=== PATIENT | female | born 1945 | race Two or more races ===

== ENCOUNTER 2023-05-17 12:22 | Inpatient (IN) | payer BC ==
[~2023-05-17] VITALS: Ht 165.1 cm; Wt 71.0 kg
[~2023-05-17 12:22] MED LIST: ATOR10TA52 PO; CEPH500C PO; GLYB5TAB9 GT; HYDR-4902 PO; NALO4SPR2
[2023-05-17 14:38] LABS: Urine Bacteria FEW /hpf (None Seen); Urine Blood Negative /uL (Negative); Urine Clarity HAZY (Clear); Urine Color Colorless (Yellow); Urine Protein, UAD 1+ (Negative); Urine Urobilinogen Normal (Negative); Urine WBC 238 /hpf (0 - 5); Urine WBC Clumps PRESENT /hpf (None Seen)
[2023-05-17 15:06] LABS: Basophils # (auto) 0.1 10 ^3/uL (0-0.2); Basophils % (auto) 0.6 % (0.0-2.0); Eosinophils # (auto) 0.8 10 ^3/uL (0-0.8); Eosinophils % (auto) 5.5 % (0.0-7.0); Hematocrit 27.1 % (36.0-46.0); Hemoglobin 8.8 g/dL (12.2-16.2); Lymphocytes # (auto) 2.4 10 ^3/uL (0.4-5.4); Lymphocytes % (auto) 17.2 % (10.0-50.0); Mean Corpuscular Hgb Conc. 32.6 g/dL (32.0-36.0); Monocytes # (auto) 1.1 10 ^3/uL (0-1.3); Monocytes % (auto) 7.8 % (0.0-12.0); Neutrophils # (auto) 9.5 10 ^3/uL (1.6-8.6); Neutrophils % (auto) 68.9 % (37.0-80.0); Red Blood Cells 2.95 10^6/uL (4.0-5.20); Red Cell Distribution Width 13.7 % (11.8-14.3); White Blood Cell 13.8 10^3/uL (4.4-10.8)
[2023-05-17 15:12] LABS: Alanine Aminotransferase 22 U/L (7-40); Albumin 4.1 g/dL (3.2-4.8); Alkaline Phosphatase 158 U/L (46-116); Anion Gap 6 (5-15); Aspartate Aminotransferase 20 U/L (13-40); BUN/Creatinine Ratio 45.8 (10.0-20.0); Bilirubin, Total 0.3 mg/dL (0.2-1.0); Calcium 9.4 mg/dL (8.5-10.1); Carbon Dioxide 28 mmol/L (20-30); Chloride 103 mmol/L (98-107); Glucose 179 mg/dL (74-106); Potassium 5.3 mmol/L (3.5-5.1); Sodium 137 mmol/L (136-145); Total Protein 6.6 g/dL (5.7-8.2)
[2023-05-17 15:24] LABS: Blood Urea Nitrogen 93 mg/dL (9-23)
[2023-05-17] MEDS ORDERED: ACETAMINOPHEN/CODEINE#3 (300/30mg) TAB PO ONE (15:30)
[2023-05-17] MEDS ORDERED: FUROSEMIDE 40 MG/4 ML VIAL IV ONE (16:00)
[2023-05-17] MEDS ORDERED: CEFTRIAXONE SODIUM 2 GM in D5W 5% 100 ML IV ONE (16:00)
[2023-05-17] MEDS ORDERED: MORPHINE SULFATE INJ 2 MG/ml SYRG IV PRN ×2 (16:30)
[2023-05-17] MEDS ORDERED: ONDANSETRON HCL 4 MG/2 ML VIAL IV PRN (16:30)
[2023-05-17] MEDS ORDERED: NITROGLYCERIN 0.4 MG SL TAB SL PRN (16:30)
[2023-05-17] MEDS ORDERED: DOCUSATE SOD 100 MG CAP PO PRN (16:30)
[2023-05-17] MEDS ORDERED: ACETAMINOPHEN 325 MG TAB PO PRN (16:30)
[2023-05-17 20:24] VITALS: PULSE 64; RESP 18; O2SAT 100
[2023-05-17] MEDS: SODIUM ZIRCONIUM CYCL 10 GM PAK PO SCH (21:02)
[2023-05-17] MEDS: hydrALAZINE HCL 20 MG/ML VL IV PRN (21:17)
[2023-05-17 21:24] LABS: Protein, Urine 54.3 mg/dL (0.0-11.9)
[2023-05-17 21:27] LABS: Creatinine, Urine 22.88 mg/dL (30.0-125.0)
[2023-05-17 22:45] VITALS: BP 162/68; PULSE 73; RESP 18; TEMP 97.6; O2SAT 100
[2023-05-17] MEDS: HYDROcodone-ACET 5/325MG TAB PO PRN (23:20)
[2023-05-18 00:25] VITALS: BP 162/68; PULSE 73; RESP 18; O2SAT 100
[2023-05-18 05:00] VITALS: BP 112/55; PULSE 64; RESP 18; TEMP 97.8; O2SAT 98
[2023-05-18 06:50] LABS: Basophils # (auto) 0.1 10 ^3/uL (0-0.2); Eosinophils # (auto) 0.7 10 ^3/uL (0-0.8); Monocytes # (auto) 1.1 10 ^3/uL (0-1.3); White Blood Cell 11.6 10^3/uL (4.4-10.8)
[2023-05-18 06:51] LABS: Basophils % (auto) 0.6 % (0.0-2.0); Eosinophils % (auto) 5.8 % (0.0-7.0); Hematocrit 24.8 % (36.0-46.0); Hemoglobin 8.3 g/dL (12.2-16.2); Lymphocytes # (auto) 2.2 10 ^3/uL (0.4-5.4); Lymphocytes % (auto) 19.2 % (10.0-50.0); Mean Corpuscular Hemoglobin 30.6 pg (28.0-32.0); Mean Corpuscular Hgb Conc. 33.6 g/dL (32.0-36.0); Mean Corpuscular Volume 91.1 fL (80.0-100.0); Monocytes % (auto) 9.8 % (0.0-12.0); Neutrophils # (auto) 7.5 10 ^3/uL (1.6-8.6); Neutrophils % (auto) 64.6 % (37.0-80.0); Red Blood Cells 2.73 10^6/uL (4.0-5.20); Red Cell Distribution Width 13.8 % (11.8-14.3)
[2023-05-18 07:16] LABS: Alanine Aminotransferase 18 U/L (7-40); Albumin 3.7 g/dL (3.2-4.8); Alkaline Phosphatase 127 U/L (46-116); Anion Gap 5 (5-15); Aspartate Aminotransferase 13 U/L (13-40); BUN/Creatinine Ratio 37.5 (10.0-20.0); Bilirubin, Total 0.3 mg/dL (0.2-1.0); Carbon Dioxide 28 mmol/L (20-30); Chloride 104 mmol/L (98-107); Glucose 167 mg/dL (74-106); Phosphorus 5.1 mg/dL (2.4-5.1); Potassium 4.6 mmol/L (3.5-5.1); Sodium 137 mmol/L (136-145); Total Protein 6.4 g/dL (5.7-8.2)
[2023-05-18 07:17] LABS: Blood Urea Nitrogen 78 mg/dL (9-23)
[2023-05-18 07:19] LABS: % Iron Saturation 18.4 % (15-50)
[2023-05-18 08:00] VITALS: PULSE 18; PULSE 66; RESP 18; O2SAT 97
[2023-05-18] MEDS: SODIUM ZIRCONIUM CYCL 10 GM PAK PO SCH ×2 (09:26→22:04)
[2023-05-18] MEDS: cefTRIAXone 1GM/50ML D5W 50 ML IV SCH (09:26)
[2023-05-18] MEDS: BUMETANIDE 2.5mg/10ml (0.25 mg/ml) INJ IV SCH (09:30)
[2023-05-18] MEDS: HYDROcodone-ACET 5/325MG TAB PO PRN ×2 (09:31→22:03)
[2023-05-18] MEDS: BENAZEPRIL HCL 10 MG TAB PO SCH (09:31)
[2023-05-18] MEDS ORDERED: FUROSEMIDE 40 MG/4 ML VIAL IV SCH (10:00)
[2023-05-18] MEDS ORDERED: EPOETIN ALFA-EPBX 4,000 UNIT/ML VIAL SC ONE (13:45)
[2023-05-18] MEDS: SODIUM FERR GLUC 62.5MG/5ML 125 MG in SODIUM CHL 0.9% 100 ML IV SCH (14:37)
[2023-05-18 17:00] VITALS: BP 166/67; PULSE 71; RESP 18; TEMP 97.9; O2SAT 100
[2023-05-18] MEDS ORDERED: FERROUS SULFATE 325mg EC TAB PO SCH (18:00)
[2023-05-18 20:00] VITALS: BP 182/65; PULSE 18; PULSE 75; RESP 18; TEMP 36.6; O2SAT 97
[2023-05-18 22:00] VITALS: BP 181/65; PULSE 71; RESP 22; TEMP 98.6; O2SAT 97
[2023-05-19] MEDS: HYDROcodone-ACET 5/325MG TAB PO PRN ×2 (04:32→11:45)
[2023-05-19 05:00] VITALS: BP 172/62; PULSE 73; RESP 20; TEMP 99.3; O2SAT 94
[2023-05-19] MEDS: hydrALAZINE HCL 20 MG/ML VL IV PRN (07:51)
[2023-05-19 08:00] VITALS: BP 183/61; PULSE 71; PULSE 73; RESP 18; TEMP 98.9; O2SAT 96
[2023-05-19] MEDS: SODIUM ZIRCONIUM CYCL 10 GM PAK PO SCH (08:00)
[2023-05-19 08:33] LABS: Anion Gap 10 (5-15); Carbon Dioxide 25 mmol/L (20-30); Chloride 101 mmol/L (98-107); Potassium 3.8 mmol/L (3.5-5.1); Sodium 136 mmol/L (136-145)
[2023-05-19 08:39] LABS: Blood Urea Nitrogen 69 mg/dL (9-23); Glucose 196 mg/dL (74-106)
[2023-05-19] MEDS: cefTRIAXone 1GM/50ML D5W 50 ML IV SCH (09:17)
[2023-05-19] MEDS: BENAZEPRIL HCL 10 MG TAB PO SCH (09:18)
[2023-05-19] MEDS: BUMETANIDE 2.5mg/10ml (0.25 mg/ml) INJ IV SCH (09:18)
[2023-05-19 12:00] VITALS: BP 129/65; PULSE 82; RESP 16; TEMP 98.1; O2SAT 94
[2023-05-19] MEDS: SODIUM FERR GLUC 62.5MG/5ML 125 MG in SODIUM CHL 0.9% 100 ML IV SCH (13:56)
[2023-05-19] MEDS ORDERED: NALO4SPR2 (15:25)
[2023-05-19] MEDS ORDERED: HYDR-4902 PO (15:25)
[2023-05-19 16:00] VITALS: BP 135/74; PULSE 76; RESP 17; TEMP 98; O2SAT 94
== END 2023-05-19 18:00 | disposition home or self-care (01) | DRG 683 ==
LOC: ER 12:22 → TELE 16:28 → TELE-CENTR 22:25
PROVIDERS: ADMIT Internal Medicine; ATTEND Internal Medicine
DX: N17.9 Acute kidney failure, unspecified (principal); I12.0 Hypertensive chronic kidney disease with stage 5 chronic kidney disease or end stage renal disease; N39.0 Urinary tract infection, site not specified; D50.9 Iron deficiency anemia, unspecified; E11.22 Type 2 diabetes mellitus with diabetic chronic kidney disease; E78.5 Hyperlipidemia, unspecified; M79.604 Pain in right leg; M79.605 Pain in left leg; R20.0 Anesthesia of skin; E87.5 Hyperkalemia; Z82.49 Family history of ischemic heart disease and other diseases of the circulatory system; Z83.3 Family history of diabetes mellitus; Z91.041 Radiographic dye allergy status; N18.5 Chronic kidney disease, stage 5
CPT/HCPCS: 36415; 80048; 80053; 81001; 82570; 82728; 82962; 83540; 83550; 83970; 84100; 84156; 85025; 93005; G0378; J0696; J2405; J7060

== ENCOUNTER 2023-05-27 03:41 | Emergency (ER) | payer BC ==
[~2023-05-27] VITALS: Ht 162.6 cm; Wt 59.1 kg
[~2023-05-27 03:41] MED LIST changes: -CEPH500C PO
[2023-05-27] MEDS ORDERED: ONDANSETRON ODT 4 MG TAB PO ONE (04:00)
[2023-05-27] MEDS ORDERED: MORPHINE SULFATE 4 MG/ML SYR/VIAL IM ONE (04:00)
[2023-05-27] MEDS ORDERED: MORPHINE SULFATE 4 MG/ML SYR/VIAL IV ONE (04:00)
[2023-05-27 04:39] VITALS: BP 179/77
[2023-05-27 04:54] VITALS: PULSE 79; RESP 17; O2SAT 98
== END 2023-05-27 07:22 | disposition home or self-care (01) ==
LOC: ER 03:41 → EDBD 03:41 → ER 07:21
DX: M54.40 Lumbago with sciatica, unspecified side (principal); I12.9 Hypertensive chronic kidney disease with stage 1 through stage 4 chronic kidney disease, or unspecified chronic kidney disease; E11.22 Type 2 diabetes mellitus with diabetic chronic kidney disease; N18.9 Chronic kidney disease, unspecified; E78.5 Hyperlipidemia, unspecified; Z79.899 Other long term (current) drug therapy; Z91.041 Radiographic dye allergy status
CPT/HCPCS: 93005; 96374; 99285; J2270; Q0162

== ENCOUNTER 2023-05-31 04:38 | Inpatient (IN) | payer BC ==
[~2023-05-31] VITALS: Ht 165.1 cm; Wt 76.3 kg
[2023-05-31 05:15] VITALS: PULSE 82; RESP 13; O2SAT 95
[2023-05-31 07:11] LABS: Basophils # (auto) 0.1 10 ^3/uL (0-0.2); Eosinophils # (auto) 0.2 10 ^3/uL (0-0.8); Eosinophils % (auto) 2.3 % (0.0-7.0); Hematocrit 26.6 % (36.0-46.0); Lymphocytes % (auto) 21.2 % (10.0-50.0); Mean Corpuscular Hemoglobin 30.9 pg (28.0-32.0); Mean Corpuscular Hgb Conc. 33.7 g/dL (32.0-36.0); Mean Corpuscular Volume 91.6 fL (80.0-100.0); Monocytes # (auto) 0.8 10 ^3/uL (0-1.3); Monocytes % (auto) 8.4 % (0.0-12.0); Neutrophils # (auto) 6.2 10 ^3/uL (1.6-8.6); Neutrophils % (auto) 67.1 % (37.0-80.0); Red Blood Cells 2.91 10^6/uL (4.0-5.20); Red Cell Distribution Width 13.5 % (11.8-14.3); White Blood Cell 9.2 10^3/uL (4.4-10.8)
[2023-05-31 07:22] LABS: Alanine Aminotransferase 25 U/L (7-40); Albumin 3.9 g/dL (3.2-4.8); Alkaline Phosphatase 112 U/L (46-116); Anion Gap 10 (5-15); Aspartate Aminotransferase 23 U/L (13-40); BUN/Creatinine Ratio 28.8 (10.0-20.0); Blood Urea Nitrogen 64 mg/dL (9-23); Calcium 9.2 mg/dL (8.7-10.4); Carbon Dioxide 24 mmol/L (20-30); Chloride 106 mmol/L (98-107); Glucose 248 mg/dL (74-106); Magnesium 2.4 mg/dL (1.6-2.6); Sodium 140 mmol/L (136-145)
[2023-05-31 07:23] LABS: Bilirubin, Total 0.4 mg/dL (0.2-1.0); INR 0.96 (0.9-1.15); Partial Thromboplastin Time 25.4 SEC (24.5-34.5); Prothrombin Time 10.1 sec (9.3-11.8); Total Protein 6.6 g/dL (5.7-8.2)
[2023-05-31 07:30] VITALS: PULSE 76; RESP 14; O2SAT 100
[2023-05-31] MEDS ORDERED: MORPHINE SULFATE INJ 2 MG/ml SYRG IV ONE (07:30)
[2023-05-31 07:40] LABS: Urine Epithelial Cast None Seen /hpf (<5)
[2023-05-31 08:05] LABS: Urine Bacteria FEW /hpf (None Seen); Urine Blood Negative /uL (Negative); Urine Clarity Clear (Clear); Urine Color Colorless (Yellow); Urine Hyaline Cast FEW /lpf (0 - 2); Urine Protein, UAD 2+ (Negative); Urine Specific Gravity 1.009 (1.001-1.035); Urine Urobilinogen Normal (Negative); Urine WBC 11 /hpf (0 - 5)
[2023-05-31] MEDS ORDERED: cefTRIAXone 1GM/50ML D5W 50 ML IV ONE (08:30)
[2023-05-31] MEDS ORDERED: SODIUM CHLORIDE 0.9% 1,000 ML IV ONE (08:30)
[2023-05-31] MEDS ORDERED: HYDROcodone-ACET 5/325MG TAB PO ONE (14:15)
[2023-05-31] MEDS ORDERED: ONDANSETRON HCL 4 MG/2 ML VIAL IV ONE (14:15)
[2023-05-31] MEDS ORDERED: FAMOTIDINE (10MG/ML) 2ML VL IV ONE (14:15)
[2023-05-31] MEDS ORDERED: DEXTROSE (50%) 50ML SYRG IV PRN (14:45)
[2023-05-31] MEDS ORDERED: NITROGLYCERIN 0.4 MG SL TAB SL PRN (14:45)
[2023-05-31] MEDS ORDERED: ONDANSETRON HCL 4 MG/2 ML VIAL IV PRN (14:45)
[2023-05-31] MEDS ORDERED: MORPHINE SULFATE INJ 2 MG/ml SYRG IV PRN (14:45)
[2023-05-31] MEDS ORDERED: ACETAMINOPHEN 325 MG TAB PO PRN (14:45)
[2023-05-31] MEDS: SODIUM CHLORIDE 0.9% 1,000 ML IV SCH (15:02)
[2023-05-31] MEDS ORDERED: hydrALAZINE HCL 20 MG/ML VL IV PRN (16:00)
[2023-05-31] MEDS: METOPROLOL TARTRATE 25 MG TAB PO SCH ×2 (16:26→21:42)
[2023-05-31] MEDS: NIFEdipine ER 30 MG TAB PO SCH (16:27)
[2023-05-31] MEDS: ACCU-CHEK COMFORT CURVE STRIP VI SCH ×2 (17:22→21:35)
[2023-05-31] MEDS: InsuLIN REG 1unit/0.01ml Soln (100units/ml) SC SCH ×2 (17:27→21:36)
[2023-05-31 20:30] VITALS: PULSE 62; RESP 11; O2SAT 97
[2023-05-31 22:37] VITALS: PULSE 65
[2023-05-31 22:54] VITALS: BP 147/57; PULSE 66; RESP 18; TEMP 97.8; O2SAT 95
[2023-05-31] MEDS ORDERED: BACL10TA PO (23:00)
[2023-05-31] MEDS ORDERED: FURO40TA4 PO (23:00)
[2023-05-31] MEDS ORDERED: CLON0.1T PO (23:00)
[2023-05-31] MEDS ORDERED: BENA40TA70 PO (23:00)
[2023-05-31] MEDS ORDERED: FLUO20TA36 PO (23:00)
[2023-05-31] MEDS ORDERED: HYDR25TA5 PO (23:00)
[2023-05-31] MEDS ORDERED: FERR325T20 PO (23:00)
[2023-05-31] MEDS ORDERED: ASPI81CH59 PO (23:00)
[2023-05-31] MEDS ORDERED: METO-289 PO (23:00)
[2023-05-31] MEDS ORDERED: GLIP10TA9 PO (23:00)
[2023-06-01] VITALS (7 sets, daily range): BP systolic 125–169; BP diastolic 54–68; PULSE 45–76; RESP 14–20; TEMP 97.7–98.4; O2SAT 94–98
[2023-06-01] MEDS ORDERED: INFLUENZA QUAD 2023-2024 0.5 ML SYRG IM ONE
[2023-06-01] MEDS: SODIUM CHLORIDE 0.9% 1,000 ML IV SCH ×3 (00:02→17:33)
[2023-06-01] MEDS: MORPHINE SULFATE INJ 2 MG/ml SYRG IV PRN ×2 (00:08→06:19)
[2023-06-01] MEDS: HYDROcodone-ACET 5/325MG TAB PO PRN (03:28)
[2023-06-01] MEDS: ACCU-CHEK COMFORT CURVE STRIP VI SCH ×3 (06:08→17:27)
[2023-06-01] MEDS: InsuLIN REG 1unit/0.01ml Soln (100units/ml) SC SCH ×4 (06:13→22:00)
[2023-06-01 06:29] LABS: Basophils # (auto) 0.1 10 ^3/uL (0-0.2); Basophils % (auto) 1.1 % (0.0-2.0); Eosinophils # (auto) 0.4 10 ^3/uL (0-0.8); Eosinophils % (auto) 4.3 % (0.0-7.0); Hematocrit 27.9 % (36.0-46.0); Hemoglobin 8.9 g/dL (12.2-16.2); Lymphocytes # (auto) 2.5 10 ^3/uL (0.4-5.4); Lymphocytes % (auto) 24.7 % (10.0-50.0); Mean Corpuscular Hemoglobin 30.7 pg (28.0-32.0); Mean Corpuscular Hgb Conc. 31.7 g/dL (32.0-36.0); Mean Corpuscular Volume 96.8 fL (80.0-100.0); Monocytes % (auto) 9.7 % (0.0-12.0); Neutrophils % (auto) 60.2 % (37.0-80.0); Red Blood Cells 2.88 10^6/uL (4.0-5.20); Red Cell Distribution Width 13.4 % (11.8-14.3)
[2023-06-01 06:49] LABS: Alanine Aminotransferase 21 U/L (7-40); Alkaline Phosphatase 83 U/L (46-116); Anion Gap 8 (5-15); Calcium 8.5 mg/dL (8.7-10.4); Carbon Dioxide 22 mmol/L (20-30); Chloride 111 mmol/L (98-107); Glucose 134 mg/dL (74-106); Potassium 4.4 mmol/L (3.5-5.1); Sodium 141 mmol/L (136-145)
[2023-06-01 06:51] LABS: Albumin 3.4 g/dL (3.2-4.8); Aspartate Aminotransferase 21 U/L (13-40)
[2023-06-01 06:52] LABS: Bilirubin, Total 0.4 mg/dL (0.2-1.0); Total Protein 6.2 g/dL (5.7-8.2)
[2023-06-01 06:57] LABS: Blood Urea Nitrogen 39 mg/dL (9-23)
[2023-06-01] MEDS: cefTRIAXone 1GM/50ML D5W 50 ML IV SCH (08:48)
[2023-06-01] MEDS: METOPROLOL TARTRATE 25 MG TAB PO SCH (08:49)
[2023-06-01] MEDS: NIFEdipine ER 30 MG TAB PO SCH (08:53)
[2023-06-01] MEDS ORDERED: GLUCAGON EMERG KIT 1mg/1ml IV ONE (18:30)
[2023-06-02] VITALS (7 sets, daily range): BP systolic 124–149; BP diastolic 54–65; PULSE 45–85; RESP 15–19; TEMP 98.1–98.5; O2SAT 94–97
[2023-06-02] MEDS: ACCU-CHEK COMFORT CURVE STRIP VI SCH ×5 (04:06→21:51)
[2023-06-02] MEDS: SODIUM CHLORIDE 0.9% 1,000 ML IV SCH ×3 (04:16→18:35)
[2023-06-02] MEDS: InsuLIN REG 1unit/0.01ml Soln (100units/ml) SC SCH ×4 (06:22→21:49)
[2023-06-02] MEDS: NIFEdipine ER 30 MG TAB PO SCH (09:27)
[2023-06-02] MEDS: cefTRIAXone 1GM/50ML D5W 50 ML IV SCH (09:27)
[2023-06-02] MEDS: HYDROcodone-ACET 5/325MG TAB PO PRN (21:55)
[2023-06-03] MEDS: SODIUM CHLORIDE 0.9% 1,000 ML IV SCH ×4 (01:05→17:45)
[2023-06-03 05:19] VITALS: BP 116/40; PULSE 81; RESP 20; TEMP 98.6; O2SAT 93
[2023-06-03] MEDS: InsuLIN REG 1unit/0.01ml Soln (100units/ml) SC SCH ×3 (06:29→17:00)
[2023-06-03] MEDS: ACCU-CHEK COMFORT CURVE STRIP VI SCH ×3 (06:34→17:00)
[2023-06-03 08:00] VITALS: PULSE 79; O2SAT 95
[2023-06-03] MEDS: cefTRIAXone 1GM/50ML D5W 50 ML IV SCH (08:50)
[2023-06-03] MEDS: NIFEdipine ER 30 MG TAB PO SCH (08:51)
[2023-06-03 13:00] VITALS: BP 156/72; PULSE 77; RESP 14; TEMP 98.2; O2SAT 98
[2023-06-03 16:58] VITALS: BP 140/60; PULSE 81; RESP 16; TEMP 98.4; O2SAT 95
== END 2023-06-03 19:15 | disposition home health service (06) | DRG 640 ==
LOC: ER 04:38 → EDSEX 04:38 → EDBD 04:38 → TELE 14:48 → TELE-WESTW 14:48
PROVIDERS: ADMIT Internal Medicine; ATTEND Internal Medicine
DX: E86.0 Dehydration (principal); N17.0 Acute kidney failure with tubular necrosis; N39.0 Urinary tract infection, site not specified; N18.4 Chronic kidney disease, stage 4 (severe); S06.0XAA Concussion with loss of consciousness status unknown, initial encounter; R00.1 Bradycardia, unspecified; R55 Syncope and collapse; T44.7X5A Adverse effect of beta-adrenoreceptor antagonists, initial encounter; I16.0 Hypertensive urgency; Y92.89 Other specified places as the place of occurrence of the external cause; M54.50 Low back pain, unspecified; E11.22 Type 2 diabetes mellitus with diabetic chronic kidney disease; E78.5 Hyperlipidemia, unspecified; Z23 Encounter for immunization; I12.9 Hypertensive chronic kidney disease with stage 1 through stage 4 chronic kidney disease, or unspecified chronic kidney disease; Z20.822 Contact with and (suspected) exposure to COVID-19; R29.6 Repeated falls; W18.39XA Other fall on same level, initial encounter; Y93.89 Activity, other specified; Y99.8 Other external cause status; Z82.49 Family history of ischemic heart disease and other diseases of the circulatory system; Z83.3 Family history of diabetes mellitus; Z91.041 Radiographic dye allergy status
CPT/HCPCS: 36415; 70450; 71045; 80053; 81001; 82962; 83735; 83880; 84484; 85025; 85610; 85730; 87086; 90686; 93005; 96365; 96375; 97110; 97116; 97163; 97530; G0378; J1815; J2405; J3490

== ENCOUNTER 2023-07-10 13:18 | Emergency (ER) | payer BC ==
[~2023-07-10] VITALS: Ht 165.1 cm; Wt 64.1 kg
[~2023-07-10 13:18] MED LIST changes: +ASPI81CH59 PO; +BACL10TA PO; +BENA40TA70 PO; +FERR325T20 PO; +FLUO20TA36 PO; +FURO40TA4 PO; +GLIP10TA9 PO; -HYDR-4902 PO; +HYDR25TA5 PO; -NALO4SPR2
[2023-07-10 13:19] VITALS: BP 147/70; PULSE 77; RESP 16; O2SAT 98
== END 2023-07-10 19:22 | disposition home or self-care (01) ==
LOC: ER 13:18
DX: M54.40 Lumbago with sciatica, unspecified side (principal); R51.9 Headache, unspecified; I12.9 Hypertensive chronic kidney disease with stage 1 through stage 4 chronic kidney disease, or unspecified chronic kidney disease; E11.22 Type 2 diabetes mellitus with diabetic chronic kidney disease; N18.9 Chronic kidney disease, unspecified; E78.5 Hyperlipidemia, unspecified; Z86.73 Personal history of transient ischemic attack (TIA), and cerebral infarction without residual deficits; Z79.82 Long term (current) use of aspirin; Z79.899 Other long term (current) drug therapy; Z91.041 Radiographic dye allergy status; W18.2XXA Fall in (into) shower or empty bathtub, initial encounter; Y93.89 Activity, other specified; Y92.89 Other specified places as the place of occurrence of the external cause; Y99.8 Other external cause status
CPT/HCPCS: 70450; 72131